=== PATIENT | female | born 1955 | race Caucasian/White ===

== ENCOUNTER → 2018-07-02 09:08 | Outpatient (CLI) | payer OTHER, SELFPAY ==
--- NOTE | 2018-07-02 | DI.MG.S_ITS ---
BILATERAL DIGITAL SCREENING MAMMOGRAM 3D/2D WITH CAD: 07/02/2018 CLINICAL: Routine screening. Comparison is made to exams dated: 05/07/2015 mammogram, 09/07/2008 mammogram - [facility], and 08/11/2006 mammogram - [facility]. The tissue of both breasts is heterogeneously dense. This may lower the sensitivity of mammography. Current study was also evaluated with a Computer Aided Detection (CAD) system. There is irregular equal density architectural distortion with an indistinct margin in the left breast at 5 o'clock posterior depth. No other significant masses, calcifications, or other findings are seen in either breast. IMPRESSION: INCOMPLETE: NEEDS ADDITIONAL IMAGING EVALUATION The irregular equal density architectural distortion in the left breast is indeterminate. Mediolateral and spot compression views as well as additional views with possible ultrasound are recommended. This exam was interpreted at Station ID: [id number]. NOTE: For mammograms, a report in lay terms will be sent to the patient. Approximately 15% of breast malignancies will not be visualized mammographically. In the management of a palpable breast mass, a negative mammogram must not discourage biopsy of a clinically suspicious lesion. Electronically Signed By: Angus hurst/daxa:07/04/2018 07:59:01 letter sent: Additional Imaging Needed ACR BI-RADS Category 0: Incomplete 3340F
== END ==
PROVIDERS: PCP Family Medicine; Visit Provider Family Medicine
DX: Z12.31 Encounter for screening mammogram for malignant neoplasm of breast (principal)
CPT/HCPCS: 77063; 77067

== ENCOUNTER → 2018-07-15 08:53 | Outpatient (CLI) | payer OTHER, SELFPAY ==
--- NOTE | 2018-07-15 | DI.US.S_ITS ---
LIMITED ULTRASOUND OF LEFT BREAST: 07/15/2018 CLINICAL: Additional evaluation requested from prior study. Comparison is made to exams dated: 07/15/2018 mammogram, 07/02/2018 mammogram, 05/07/2015 mammogram, 09/07/2008 mammogram - [facility], and 08/11/2006 mammogram - [facility]. Real-time and Doppler ultrasound of the left breast upper inner, upper outer, and lower outer quadrants, and retroareolar regions were performed. Escalante scale images of the real-time examination were reviewed. There is 0.4 x 0.2 x 0.2 cm oval indistinct hypoechoic cyst demonstrating low level internal echoes and no vascularity on Doppler ultrasound in the left breast at 10:00 position 3 cm from the nipple. This may correlate with the finding seen on mammography. There is a 0.5 x 0.5 x 0.4 cm irregular indistinct area of hypoechoic tissue in the left breast at 10:00 position 5 cm from the nipple, which has the appearance of posterior shadowing secondary to an overlying Yehuda's ligament on multiple views. There is no vascularity demonstrated on Doppler ultrasound. This may correlate with the finding seen on mammography. There is a 0.7 x 0.5 x 0.3 cm peripherally hypoechoic and centrally hyperechoic oval circumscribed mass in the left breast at 3:00 position 3 cm from nipple, consistent with an intramammary lymph node and demonstrating mild hilar vascularity on Doppler ultrasound. This may correlate with the finding seen on mammography. No other masses or abnormalities are identified within the imaged portions of the breasts. Specifically, no masses or abnormalities are identified at the 5:00 position Targeted ultrasound of the left axilla demonstrates no left axillary lymphadenopathy. IMPRESSION: PROBABLY BENIGN 1) 0.5 cm indistinct area of hypoechoic tissue in the left breast at 10:00 position 5 cm from the nipple, which is suspected to represent posterior shadowing artifact secondary to an overlying Yehuda's ligament, but an underlying mass or complex cyst is difficult to exclude given tissue heterogeneity and artifact. The areas extremely difficult to visualize on ultrasound and is not amenable to ultrasound-guided or stereotactic biopsy (with the area of concern highly likely to be obscured once any local anesthetic has been administered). A short-term followup targeted diagnostic ultrasound with possible mammogram of the left breast in 3 months is recommended to demonstrate stability; a breast MRI is also recommended. 2) 0.4 cm probable complicated cyst in the left breast at 10:00 position 3 cm from the nipple. Re-evaluation of this finding on the short-term followup ultrasound recommended above is suggested. 3) 0.7 cm benign-appearing intramammary lymph node in the left breast at 3:00 position 3 cm from nipple. This may correlate with the finding seen on mammography. No abnormality is seen on targeted ultrasound of the 5:00 position of the left breast. 4) No left axillary lymphadenopathy. This exam was interpreted at Station ID: [id number]. Electronically Signed By: Tito Ramirez M.D. ecl/:07/15/2018 14:57:43 letter sent: Followup Recommended Ultrasound BI-RADS: 3 Probably benign
--- NOTE | 2018-07-15 | DI.MG.S_ITS ---
UNILATERAL LEFT DIGITAL DIAGNOSTIC MAMMOGRAM 3D/2D WITH ADDITIONAL VIEWS: 07/15/2018 CLINICAL: Additional evaluation requested from prior study. Comparison is made to exams dated: 07/02/2018 mammogram, 05/07/2015 mammogram, and 09/07/2008 mammogram - [facility]. The tissue of left breast is heterogeneously dense. This may lower the sensitivity of mammography. Previously noted irregular architectural distortion in the left breast at 5:00 position posterior depth on comparison screening mammogram of 07/02/2018 largely resolves with additional spot compression and tomosynthesis views, with only a subcentimeter residual focal asymmetry which localizes near the plane of the nipple in the lateral left breast. There is an oval indistinct asymmetry in the upper left breast at middle to posterior depth which persists with spot compression views. IMPRESSION: INCOMPLETE: NEEDS ADDITIONAL IMAGING EVALUATION 1)Previously noted irregular architectural distortion in the left breast at 5:00 position posterior depth on comparison screening mammogram of 07/02/2018 largely resolves with additional views, with only a subcentimeter residual focal asymmetry identified in the lateral left breast. A targeted ultrasound is recommended for further evaluation. 2) Oval indistinct asymmetry in the upper left breast at middle to posterior depth which persists with spot compression views. A targeted ultrasound is recommended for further evaluation. This exam was interpreted at Station ID: [id number]. NOTE: For mammograms, a report in lay terms will be sent to the patient. Approximately 15% of breast malignancies will not be visualized mammographically. In the management of a palpable breast mass, a negative mammogram must not discourage biopsy of a clinically suspicious lesion. Electronically Signed By: Tito Ramirez M.D. ecl/:07/15/2018 14:48:11 letter sent: Additional Imaging Needed ACR BI-RADS Category 0: Incomplete 3340F
== END ==
PROVIDERS: PCP Family Medicine; Visit Provider Family Medicine
DX: R92.8 Other abnormal and inconclusive findings on diagnostic imaging of breast (principal); N63.22 Unspecified lump in the left breast, upper inner quadrant; N60.02 Solitary cyst of left breast; R59.0 Localized enlarged lymph nodes
CPT/HCPCS: 76642; 77065; G0279

== ENCOUNTER → 2018-07-29 16:46 | Outpatient (CLI) | payer OTHER, SELFPAY ==
[2018-07-29 17:43] LABS: C-Reactive Protein Quant 0.7 mg/dL (<1.0); Uric Acid 5.9 mg/dL (2.5-6.2)
[2018-07-29 17:44] LABS: Rheumatoid Factor < 8.6 IU/mL (<12.0)
[2018-07-29 18:13] LABS: Basophils Absolute Auto 100 /uL (0-100); Basophils Percent Auto 0.8 % (0-2); Eosinophils Absolute Auto 400 /uL (0-450); Eosinophils Percent Auto 2.8 % (2-4); Hemoglobin 14.2 g/dL (12.0-16.0); Lymphocytes Absolute Auto 2700 /uL (1100-4500); Mean Corpuscular HGB Conc 32.2 % (30-36); Mean Corpuscular Hemoglobin 28.5 PG (26-34); Mean Corpuscular Volume 88.5 fL (80-100); Monocytes Absolute Auto 1300 /uL (0-900); Monocytes Percent Auto 8.5 % (3-14); Neutrophils Absolute Auto 10500 /uL (1500-7000); Neutrophils Percent Auto 69.9 % (50-75); Red Blood Cell Count 4.97 X10^6/uL (4.0-5.2); Red Cell Distribution Width 18.9 % (11.6-14.8)
[2018-07-29 18:20] LABS: Add Manual Diff / Slide Review SLIDE REVIEW
[2018-07-29 19:00] LABS: Platelet Count 845 X10^3/uL (150-400)
[2018-07-29 19:02] LABS: Anisocytosis 1+
[2018-07-29 19:04] LABS: Erythrocyte Sedimentation Rate 17 MM/HR (0-20)
[2018-07-31 20:39] LABS: ANA Pattern Homogeneous; ANA Screen, IFA Positive (Negative)
== END ==
PROVIDERS: PCP Family Medicine; Visit Provider Orthopaedic Surgery
DX: M65.841 Other synovitis and tenosynovitis, right hand (principal); S50.11XA Contusion of right forearm, initial encounter
CPT/HCPCS: 36415; 84550; 85025; 85651; 86038; 86140; 86430